=== PATIENT | male | born 1965 | race Two or more races ===

== ENCOUNTER 2024-04-17 09:53 | Emergency (ER) | payer OTHER ==
[~2024-04-17] VITALS: Ht 167.6 cm; Wt 81.6 kg
[2024-04-17] MEDS ORDERED: ACET1TAB23 PO (10:33)
[2024-04-17] MEDS ORDERED: TDAP DIPH,PERTUSS,TET VAC/PF 0.5 ML DISP.SYRIN IM ONE (10:35)
[2024-04-17] MEDS ORDERED: GENTAMICIN TOP (10:37)
[2024-04-17] MEDS: TDAP DIPH,PERTUSS,TET VAC/PF 0.5 ML DISP.SYRIN IM ONE (10:41)
[2024-04-17] MEDS: GENTAMICIN SULFATE 0.1% OINT 15 GM TUBE TP ONE (10:42)
[2024-04-17] MEDS ORDERED: SILV50CR32 TP (10:43)
[2024-04-17] MEDS ORDERED: SILVER SULFADIAZINE 1% CREAM 50 GM TP ONE (10:43)
[2024-04-17] MEDS: SILVER SULFADIAZINE 1% CREAM 50 GM TP ONE (10:47)
[2024-04-17 11:29] VITALS: BP 131/77; O2SAT 97
== END 2024-04-17 11:02 | disposition home or self-care (01) ==
LOC: ER 09:53
DX: T20.20XA Burn of second degree of head, face, and neck, unspecified site, initial encounter (principal); X08.8XXA Exposure to other specified smoke, fire and flames, initial encounter; Y93.89 Activity, other specified; Y92.89 Other specified places as the place of occurrence of the external cause; Y99.8 Other external cause status
CPT/HCPCS: 16020; 90715; A4606; A4663